=== PATIENT | female | born 2000 | race Caucasian/White ===

== ENCOUNTER 2018-06-06 20:06 | Emergency (ER) | payer BC, MEDICAID ==
[2018-06-06 20:12] VITALS: BP 149/78; PULSE 89; RESP 16; TEMP 98.9; O2SAT 100
--- NOTE | 2018-06-06 20:20 | ED PDOC ---
HPI: Psych/Substance Abuse Time Seen by Provider: 06/06/18 20:13 Chief Complaint (Nursing): Psychiatric Evaluation Chief Complaint (Provider): crisis eval History Per: Patient, Family (father) Onset/Duration Of Symptoms: Days (x 2 months) Current Symptoms Are (Timing): Still Present Suicide/Self Injury Attempted (Context): None Modifying Factor(s): None Additional Complaint(s): 17 year old female presents to the ED for crisis evaluation secondary to aggressive and defiant behavior for the past 2 months. Patient is currently undergoing therapy through [facility] but father does not think this is helping patient. Patient takes no meds daily as per father. Patient denies any suicidal or homicidal ideation. PMD: none provided Past Medical History Reviewed: Historical Data, Nursing Documentation, Vital Signs Vital Signs: Last Vital Signs Temp 98.9 F 06/06/18 20:07 Pulse 89 06/06/18 20:07 Resp 16 06/06/18 20:07 BP 149/78 06/06/18 20:07 Pulse Ox 100 06/06/18 20:07 - Medical History Other PMH: Intellectual delay - Surgical History Surgical History: No Surg Hx - Family History Family History: States: No Known Family Hx - Living Arrangements Living Arrangements: With Family - Social History Current smoker - smoking cessation education provided: No Ex-Smoker (has not smoked in the last 12 months): No Alcohol: None Drugs: Denies - Allergies Allergies/Adverse Reactions: Allergies Allergy/AdvReac Type Severity Reaction Status Date / Time No Known Allergies Allergy Verified 06/06/18 20:07 Review of Systems ROS Statement: Except As Marked, All Systems Reviewed And Found Negative Psych: Positive for: Other (aggressive behavior ) Physical Exam - Reviewed Nursing Documentation Reviewed: Yes Vital Signs Reviewed: Yes - Physical Exam Appears: Positive for: Well, Non-toxic, No Acute Distress Head Exam: Positive for: ATRAUMATIC, NORMAL INSPECTION, NORMOCEPHALIC Skin: Positive for: Normal Color. Negative for: Rash Eye Exam: Positive for: Normal appearance Cardiovascular/Chest: Positive for: Regular Rate, Rhythm. Negative for: Murmur Respiratory: Positive for: Normal Breath Sounds. Negative for: Respiratory Distress Gastrointestinal/Abdominal: Positive for: Normal Exam, Soft. Negative for: Tenderness, Mass, Distended, Guarding Neurologic/Psych: Positive for: Alert, Oriented. Negative for: Motor/Sensory Deficits - ECG O2 Sat by Pulse Oximetry: 100 (RA) Pulse Ox Interpretation: Normal Medical Decision Making Medical Decision Makin:38 Impression: 17 year old EDP Initial Plan: --Crisis evaluation As per crisis counselor and psychiatrist correctional guard Dr. Kemp, patient does not meet criteria for admission and is stable for discharge. Scribe Attestation: Documented by Gayathri Canseco, acting as a scribe for Leigha Flowers PA-C Provider Scribe Attestation: All medical record entries made by the Scribe were at my direction and personally dictated by me. I have reviewed the chart and agree that the record accurately reflects my personal performance of the history, physical exam, medical decision making, and the department course for this patient. I have also personally directed, reviewed, and agree with the discharge instructions and disposition. Disposition - Clinical Impression Clinical Impression: Intellectual delay - Patient ED Disposition Is Patient to be Admitted: No Counseled Patient/Family Regarding: Need For Followup - Disposition Referrals: [facility] [Outside] Disposition: Routine/Home Disposition Time: 22:21 Condition: STABLE Additional Instructions: Follow up as directed. Instructions: Intellectual Disability, Child Forms: [employer] (Croatian)
== END 2018-06-06 22:43 | disposition home or self-care (01) ==
LOC: H.ER 20:06
DX: F81.9 Developmental disorder of scholastic skills, unspecified (principal)

== ENCOUNTER 2018-08-01 19:39 | Emergency (ER) | payer BC, MEDICAID ==
[2018-08-01 19:45] VITALS: BP 147/81; PULSE 92; RESP 18; TEMP 98; O2SAT 100
--- NOTE | 2018-08-01 20:58 | ED PDOC ---
HPI: Psych/Substance Abuse Time Seen by Provider: 08/01/18 20:01 Chief Complaint (Nursing): Psychiatric Evaluation Chief Complaint (Provider): Psychiatric Evaluation History Per: Patient, Family (Father) History/Exam Limitations: no limitations Current Symptoms Are (Timing): Still Present Additional Complaint(s): 17 year old female presents to the ED with father, who takes care of patient, fo r a psychiatric evaluation. Father reports patient has been violent, argumentative, uncooperative, and belligerent at home. Patient has been having behavior problems at home and father has been unable to control her. Father states patient has a developmental disorder and possible Autism Spectrum Disorder. Patient does not take any medications. Denies homicidal or suicidal ideation. PMD: none provided Past Medical History Reviewed: Historical Data, Nursing Documentation, Vital Signs Vital Signs: Last Vital Signs Temp 98.0 F 08/01/18 19:43 Pulse 92 H 08/01/18 19:43 Resp 18 08/01/18 19:43 BP 147/81 08/01/18 19:43 Pulse Ox 100 08/01/18 19:43 - Medical History PMH: Denies: Diabetes, Hepatitis, HIV, HTN, Seizures, Sexually Transmitted Disease Other PMH: Developmental disorder - Surgical History Surgical History: No Surg Hx - Family History Family History: States: Unknown Family Hx - Immunization History Hx Tetanus Toxoid Vaccination: No Hx Influenza Vaccination: No Hx Pneumococcal Vaccination: No - Allergies Allergies/Adverse Reactions: Allergies Allergy/AdvReac Type Severity Reaction Status Date / Time Penicillins Allergy RASH Verified 08/01/18 19:43 Review of Systems ROS Statement: Except As Marked, All Systems Reviewed And Found Negative Psych: Positive for: Other (Violent, argumentative, uncooperative, and belligerent). Negative for: Suicidal ideation (or homicidal ideation) Physical Exam - Reviewed Nursing Documentation Reviewed: Yes Vital Signs Reviewed: Yes - Physical Exam Appears: Positive for: Non-toxic, No Acute Distress (Calm and cooperative) Head Exam: Positive for: ATRAUMATIC, NORMOCEPHALIC Skin: Positive for: Normal Color, Warm, Dry Eye Exam: Positive for: Normal appearance, EOMI Neck: Positive for: Normal, Painless ROM Extremity: Positive for: Normal ROM Neurologic/Psych: Positive for: Alert, Oriented. Negative for: Motor/Sensory Deficits - ECG O2 Sat by Pulse Oximetry: 100 (RA) Pulse Ox Interpretation: Normal Medical Decision Making Medical Decision Making: Initial Impression: Behavior disturbance and aggressive behavior Initial Plan: --Crisis evaluation Scribe Attestation: Documented by Seamus Iraheta acting as a scribe for Suri Ennis MD. Provider Scribe Attestation: All medical record entries made by the Scribe were at my direction and personally dictated by me. I have reviewed the chart and agree that the record accurately reflects my personal performance of the history, physical exam, medical decision making, and the department course for this patient. I have also personally directed, reviewed, and agree with the discharge instructions and disposition. Disposition - Clinical Impression Clinical Impression: Behavior disturbance, Intellectual delay - Patient ED Disposition Is Patient to be Admitted: No Counseled Patient/Family Regarding: Studies Performed, Diagnosis - Disposition Disposition: Left W/O Treatment Disposition Time: 22:00 Condition: STABLE
== END 2018-08-01 21:50 | disposition left against medical advice (07) ==
LOC: H.ER 19:39
DX: F98.9 Unspecified behavioral and emotional disorders with onset usually occurring in childhood and adolescence (principal)